=== PATIENT | male | born 1950 | race Caucasian/White ===

== ENCOUNTER 2018-03-03 10:58 | Emergency (ER) | payer OTHER ==
[~2018-03-03] VITALS: Ht 185.4 cm; Wt 131.5 kg
[2018-03-03 11:03] VITALS: Ht 185.4 cm; Wt 131.5 kg
[2018-03-03 13:07] VITALS: BP 110/70
== END 2018-03-03 13:07 | disposition home or self-care (01) ==
LOC: ED 10:58
DX: K04.7 Periapical abscess without sinus (principal); K02.9 Dental caries, unspecified; F17.210 Nicotine dependence, cigarettes, uncomplicated; I10 Essential (primary) hypertension; E78.00 Pure hypercholesterolemia, unspecified; M19.90 Unspecified osteoarthritis, unspecified site; E66.9 Obesity, unspecified
CPT/HCPCS: J0295; J2001

== ENCOUNTER 2019-10-31 17:13 | Emergency (ER) | payer OTHER ==
[~2019-10-31] VITALS: Ht 185.4 cm; Wt 136.1 kg
[2019-10-31 17:25] VITALS: Ht 185.4 cm; Wt 136.1 kg
[2019-10-31 18:28] LABS: BASOPHIL % 0.7 % (0-2); PLATELET COUNT 202 x10^3mcL (130-400)
[2019-10-31 18:42] LABS: CALCIUM 9.4 mg/dL (8.5-10.1); CARBON DIOXIDE 25.6 mmol/L (21-32); CHLORIDE SERUM 101 mmol/L (98-107); CREATININE SERUM 0.9 mg/dL (0.7-1.3); GFR1 > 60 mL/min; GLUCOSE SERUM 192 mg/dL (74-106); POTASSIUM SERUM 3.5 mmol/L (3.5-5.1); SODIUM SERUM 140 mmol/L (136-145)
[2019-10-31 18:54] LABS: ALBUMIN 3.6 g/dL (3.4-5.0); ALKALINE PHOSPHATASE 64 U/L (46-116); BILIRUBIN TOTAL 0.29 mg/dL (0.20-1.00); LIPASE 60 IU/L (73-393); MAGNESIUM 1.8 mg/dL (1.8-2.4); T4(THYROXINE) 7.1 ug/dL (4.7-13.3); TOTAL PROTEIN, SERUM 6.8 g/dL (6.4-8.2)
[2019-10-31 18:56] LABS: CHOLESTEROL 232 mg/dL (<200); HDL CHOLESTEROL 28 mg/dL (40-60)
[2019-10-31 19:13] LABS: microscopic required? NO
[2019-10-31 19:27] LABS: urine erythrocyte NEGATIVE (NEGATIVE)
[2019-10-31 19:38] LABS: AMPHETAMINE QUAL UR NONE DETECTED (See below)
[2019-10-31 20:06] LABS: AST/SGOT 8 U/L (15-37)
[2019-10-31 20:33] LABS: ALT/SGPT 44 U/L (16-63)
[2019-10-31 22:06] VITALS: BP 136/86
== END 2019-10-31 22:06 | disposition home or self-care (01) ==
LOC: ED 17:13
PROVIDERS: Emergency Medicine
DX: M51.36 Other intervertebral disc degeneration, lumbar region (principal); M47.816 Spondylosis without myelopathy or radiculopathy, lumbar region; M54.16 Radiculopathy, lumbar region; E11.65 Type 2 diabetes mellitus with hyperglycemia; I10 Essential (primary) hypertension; H40.9 Unspecified glaucoma; E66.9 Obesity, unspecified; Z68.39 Body mass index [BMI] 39.0-39.9, adult
CPT/HCPCS: 36415; G0480